=== PATIENT | female | born 1980 | race Caucasian/White ===

== ENCOUNTER 2019-11-11 12:29 | Outpatient (CLI) | payer OTHER ==
--- NOTE | 2019-11-11 13:07 | XRAY Report ---
Reason: CERVICALGIA,CHRONIC NECK PAIN Procedure Date: 11/11/2019 Accession Number: [id number] / [id number] Procedure: XR - Cervical Spine Complete CPT Code: Final Report FULL RESULT: EXAM: CERVICAL SPINE RADIOGRAPHY EXAM DATE: 11/11/2019 12:49 PM. CLINICAL HISTORY: Cervicalgia, chronic neck pain. COMPARISONS: None. TECHNIQUE: 5 views. FINDINGS: Alignment: There is approximately 5 degrees of levoconvex cervicothoracic scoliosis, potentially positional. No listhesis is seen. Bones: The cervical vertebral bodies and posterior elements are well-visualized from the skull base through C7-T1. No fractures or bone lesions. Disks: Normal. Disk heights are maintained. Facets: No degenerative disease. Neural Foramina: The neural foramina have bony patency on the right side with evaluation of the left neural foramina somewhat limited by the scoliosis which precludes visualization of the upper neural foramina, visualized foramina are patent. Soft Tissues: Normal. No prevertebral soft tissue swelling. The visualized lung apices are clear. IMPRESSION: Scoliosis as described. Somewhat limited visualization of the left sided neural foramina likely due to the scoliosis. [facility]
== END 2019-11-11 12:30 | disposition home or self-care (01) ==
LOC: DI 12:29
PROVIDERS: ATTEND Chiropractor Neurology
DX: M41.9 Scoliosis, unspecified (principal)
CPT/HCPCS: 72050